=== PATIENT | male | born 1955 | race Caucasian/White ===

== ENCOUNTER 2017-10-12 06:00 | Emergency (ER) | payer OTHER ==
[~2017-10-12 06:00] MED LIST: MELO7.5T27 PO; PANT40TA3 PO; TRAM50TA PO
[2017-10-12 06:01] VITALS: BP 119/78; PULSE 78; RESP 20; TEMP 98.5; O2SAT 92
[2017-10-12] MEDS ORDERED: DEXAMETHASONE SOD PHOS 4 MG/ML VIAL IM ONE (06:30)
--- NOTE | 2017-10-12 06:32 | PD ---
HPI Chief Complaint: Cold / Flu Symptoms Time Seen by Provider: 06:14 Travel History International Travel<30 days: No Contact w/Intl Traveler<30days: No Traveled to known affect area: No History of Present Illness HPI 62-year-old male presents to the emergency department for evaluation of cough, chest congestion worsening over last 4-5 days. Patient has had a subjective fever. He has had body aches. His cough is not productive of a thick yellow- white sputum. He denies any chest pain. No nausea or vomiting. No other symptoms to report. [facility] Past Medical History Medical History: Denies Significant Hx Social History Alcohol Use: No Tobacco Use: No Substance Use: No Allergies-Medications (Allergen,Severity, Reaction): Coded Allergies: No Known Allergies (Unverified , 08/20/17) Reported Meds & Prescriptions Reported Meds & Active Scripts Active Nebulizer 1 Mis Mis Ea .XX DIRECTED Nebulizer Kit/Tubing/Mout (N/A) 1 Kit Kit Kit .XX DIRECTED Zithromax Z-Andrea (Azithromycin) 250 Mg Dspk 250 Mg PO DIRECTED 500 MG (2 tabs) day 1, then 1 tab days 2-5. Prednisone 50 Mg Tab 50 Mg PO DAILY 5 Days Duoneb (Ipratropium-Albuterol Neb) 0.5-2.5 Mg/3 Ml Neb 1 Nebule INH Q6HR NEB Pantoprazole (Pantoprazole Sodium) 40 Mg Tab 40 Mg PO DAILY Reported Tramadol (Tramadol HCl) 50 Mg Tab 100 Mg PO DAILY PRN Meloxicam 7.5 Mg Tab 7.5 Mg PO DAILY Tramadol (Tramadol HCl) 50 Mg Tab 50 Mg PO Q6H PRN Review of Systems Except as stated in HPI: all other systems reviewed are Neg Physical Exam Narrative GENERAL: Well-nourished male patient in no acute distress SKIN: Focused skin assessment warm/dry. HEAD: Atraumatic. Normocephalic. EYES: Pupils equal and round. No scleral icterus. No injection or drainage. ENT: No nasal bleeding or discharge. Mucous membranes pink and moist. NECK: Trachea midline. No JVD. CARDIOVASCULAR: Regular rate and rhythm. No murmur appreciated. RESPIRATORY: No accessory muscle use. Diminished, coarse, but clear to cough. Breath sounds equal bilaterally. GASTROINTESTINAL: Abdomen soft, non-tender, nondistended. Hepatic and splenic margins not palpable. MUSCULOSKELETAL: No obvious deformities. No clubbing. No cyanosis. No edema. NEUROLOGICAL: Awake and alert. No obvious cranial nerve deficits. Motor grossly within normal limits. Normal speech. PSYCHIATRIC: Appropriate mood and affect; insight and judgment normal. Data Data Last Documented VS Vital Signs Date Time Temp Pulse Resp B/P (MAP) Pulse Ox O2 Delivery O2 Flow Rate FiO2 10/12/17 07:13 10/12/17 06:01 98.5 78 20 92 Room Air Orders Orders Influenzae A/B Antigen (10/12/17 06:26) Chest, Single Ap (10/12/17 ) Dexamethasone Inj (Decadron Inj) (10/12/17 06:30) Albuterol-Ipratropium Neb (Duoneb Neb) (10/12/17 06:30) Ed Discharge Order (10/12/17 07:08) [facility] Medical Decision Making Medical Screen Exam Complete: Yes Emergency Medical Condition: Yes Medical Record Reviewed: Yes Differential Diagnosis Pneumonia versus influenza versus common cold Narrative Course 62-year-old male presents emergency department for evaluation of cough and chest congestion. Patient appears without distress. His O2 sats are 92% on room air. Lungs sounds are diminished. This is concerning for pneumonia with patient's reported history of fever body aches. Last Impressions Chest X-Ray 10/12/17 0000 Signed Impressions: Service Date/Time: Saturday, October 12, 2017 06:35 - CONCLUSION: Patchy left basilar airspace disease. Followup recommended after appropriate medical therapy to ensure resolution. Warren Kerr MD Imaging studies are reviewed. Patient be started on oral antibiotics for pneumonia. He is encouraged follow-up with primary care provider and return immediately with any acute worsening symptoms. Diagnosis Primary Impression: Pneumonia Qualified Codes: J18.1 - Lobar pneumonia, unspecified organism Referrals: Primary Care Physician Patient Instructions: Community Acquired Pneumonia (ED), General Instructions Additional Instructions: It is important that you are taking deep breaths and coughing Avoid prolonged bedrest Tylenol or ibuprofen as directed on the package as needed for fever and/or pain Follow-up with a primary care provider Return immediately with any acute worsening symptoms Med/Other Pt SpecificInfo: Prescription(s) given Scripts Nebulizer (Nebulizer) 1 Mis Mis EA .XX DIRECTED for Breathing Treatment, #1 0 Refills Prov: Daysi Holman 10/12/17 Nebulizer Kit/Tubing/Mout (Nebulizer Kit/Tubing/Mout) 1 Kit Kit KIT .XX DIRECTED for Breathing Treatment, #1 0 Refills Prov: Daysi Holman 10/12/17 Azithromycin (Zithromax Z-Andrea) 250 Mg Dspk 250 MG PO DIRECTED for Infection, #1 DSPK 0 Refills 500 MG (2 tabs) day 1, then 1 tab days 2-5. Prov: Daysi Holman 10/12/17 Prednisone (Prednisone) 50 Mg Tab 50 MG PO DAILY for 5 Days, #5 TAB 0 Refills Prov: Daysi Holman 10/12/17 Ipratropium-Albuterol Neb (Duoneb) 0.5-2.5 Mg/3 Ml Neb 1 NEBULE INH Q6HR NEB for Breathing Treatment, #120 NEBULE 0 Refills Prov: Daysi Holman 10/12/17 Disposition: 01 DISCHARGE HOME Condition: Stable Daysi Holman Oct 12, 2017 06:32
[2017-10-12] MEDS: RESP: ALBUTEROL 2.5 MG/IPRATROPIUM 0.5 MG NEB (SCH) INH ×2 (06:34→06:35)
--- NOTE | 2017-10-12 06:44 | RADRPT ---
EXAM DATE/TIME: 10/12/2017 06:35 [place] COMPARISON: No previous studies available for comparison. INDICATIONS : Cough. MEDICAL HISTORY : None. SURGICAL HISTORY : None. ENCOUNTER: Initial ACUITY: 4 - 6 days PAIN SCORE: 0/10 LOCATION: Bilateral chest FINDINGS: Cardiomegaly. Patchy left basilar airspace disease. Right lung is clear. No effusion. Osseous structu res are intact. CONCLUSION: Patchy left basilar airspace disease. Followup recommended after appropriate medical therapy to ensur e resolution. Warren Kerr MD on October 12, 2017 at 6:42 Board Certified Radiologist. This report was verified electronically.
[2017-10-12] MEDS ORDERED: IPRASOL INH (07:11)
[2017-10-12] MEDS ORDERED: NEBUKIT5 (07:11)
[2017-10-12] MEDS ORDERED: NEBULIZER1 MI1 (07:11)
[2017-10-12] MEDS ORDERED: ZITHTAB PO (07:11)
[2017-10-12] MEDS ORDERED: PRED50 PO (07:11)
== END 2017-10-12 07:16 | disposition home or self-care (01) ==
LOC: NEPD 06:00
DX: J18.1 Lobar pneumonia, unspecified organism (principal)
CPT/HCPCS: 71045; 87804; 94640; 94664; 96372; 99284; J1100